=== PATIENT | male | born 1990 | race Caucasian/White ===

== ENCOUNTER 2021-02-24 09:05 | Outpatient (RCR) | payer OTHER, SELFPAY ==
[2015-07-04 21:33] VITALS: BMI 22.4
== END 2021-04-19 23:59 ==
LOC: IMMUN 09:05
PROVIDERS: PCP Family Medicine; Visit Provider Family Medicine
DX: Z23 Encounter for immunization (principal)
CPT/HCPCS: 0001A; 0002A; 91300